=== PATIENT | male | born 1955 | race Caucasian/White ===

== ENCOUNTER → 2018-03-13 12:18 | Outpatient (CLI) | payer OTHER, SELFPAY ==
--- NOTE | 2018-03-13 13:00 | MRI_ITS ---
STUDY: MRI RIGHT MIDFOOT REASON FOR EXAM: Male, 63 years old. Pain. TECHNIQUE: Standardized fat and water weighted pulse sequences were obtained in all 3 orthogonal planes. COMPARISON: None. FINDINGS: There is mild degenerative arthrosis of the talonavicular articulation. 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 Normal calcaneocuboid articulation. Normal navicular-cuneiform articulations. There is mild degenerative arthrosis of the intercuneiform articulation. Normal first tarsometatarsal articulation. Normal Lisfranc ligament. Fusion and hardware at the second tarsometatarsal articulation. Normal cuboid fourth and cuboid fifth tarsometatarsal articulation. There is marrow edema at the base of the fourth metatarsal, series 9 image 09/19. Normal tibialis anterior tendon. Normal extensor hallucis longus tendon. Normal extensor digitorum longus tendons. Normal peroneus longus tendon and distal insertion. Normal peroneus brevis tendon and distal insertion. Normal intrinsic muscles of the mid and forefoot region. Normal extensor digitorum brevis muscle. Normal subcutis adipose space. MRI/Lower Ext/No Jt/w/o IMPRESSION: Postoperative changes are seen with fusion at the second tarsometatarsal articulation. 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 Marrow edema with bone bruise or stress injury of the fourth metatarsal. Arthritic changes. Electronically Signed: Rayshawn Diaz MD at 21:17 EST , Service support ,
--- OUTSIDE RECORDS SUMMARY | 2018-06-14 22:17 | XMS RPT_ITS ---
:1955 Author Organization OHIP Care Team Providers Name Role Phone ADRIANA, DR DALE Admitting Unavailable HILL, DR DALE Attending Unavailable HILL, DR DALE Consulting Unavailable HILL, DR DALE Admitting Unavailable HILL, DR DALE Attending Unavailable RASHEEDA, DR WILFREDO Monte Consulting Unavailable HILL, DR DALE Consulting Unavailable HILL, DR DALE Admitting Unavailable HILL, DR DALE Attending Unavailable MISC, DR GARCIA Primary Care Unavailable HILL, DR DALE Consulting Unavailable MISC, DR GARCIA Primary Care Unavailable ELEN, DR DAISY Reddy Admitting Unavailable GLENECK, DR DAISY Reddy Attending Unavailable REINECK, DR DAISY Reddy Consulting Unavailable YAROSH, EDY Consulting Unavailable HILL, DR DALE Consulting Unavailable MISC, DR GARCIA Admitting Unavailable MISC, DR GARCIA Attending Unavailable MISC, DR GARCIA Primary Care Unavailable MISC, DR GARCIA Admitting Unavailable MISC, DR GARCIA Attending Unavailable BO, DR LAUREN Mary Consulting Unavailable HILL, DR DALE Consulting Unavailable AMADA NAM, DR RAMIREZ Jasso Consulting Unavailable HILL, DR DALE Admitting Unavailable HILL, DR DALE Attending Unavailable HILL, DR DALE Consulting Unavailable LUIS, DR OLIVAS Admitting Unavailable SMITH, DR OLIVAS Attending Unavailable BO, DR LAUREN Mary Consulting Unavailable LUIS, DR OLIVAS Consulting Unavailable HILL, DR DALE Consulting Unavailable MISC, DR GARCIA Admitting Unavailable MISC, DR GARCIA Attending Unavailable WEST, DR LAUREN Mary Consulting Unavailable MISC, DR GARCIA Consulting Unavailable HILL, DR DALE Consulting Unavailable HILL, DR DALE Admitting Unavailable HILL, DR DALE Attending Unavailable HILL, DR DALE Primary Care Unavailable HILL, DR DALE Consulting Unavailable Benson Pa Attending Unavailable Thierno, Benson Referring Unavailable JOSUÉ VICTOR Primary Care Unavailable PROBLEMS PROBLEMS DATE TYPE CONDITION / CODE ATTENDING STATUS SOURCE Working PURE HYPERCHOLESTEROLEMIA ADRIANA, Active [facility] 9 Diagnosis UNSPEC / E78.00(ICD-10) [facility] Repository Admitting PURE HYPERCHOLESTEROLEMIA HILL, DR Active [facility] 9 Diagnosis UNSPEC / E78.00(ICD-10) [facility] Repository Principle PURE HYPERCHOLESTEROLEMIA ADRIANA, DR Active [facility] 9 Diagnosis UNSPEC / E78.00(ICD-10) [facility] Repository Secondary OTHER ABNORMAL GLUCOSE / ADRIANA, DR Active [facility] 9 Diagnosis R73.09(ICD-10) [facility] Repository Secondary VITAMIN D DEFICIENCY ADRIANA, Active [facility] 9 Diagnosis UNSPECIFIED / [facility] E55.9(ICD-10) Repository Unknown M84.30XD - Stress Horn, Benson Active [place] 8 fracture, unspecified Community site, subsequent Hospital encounter for fracture Repository with routine healing / M84.30XD(ICD-10) Working PAIN IN RIGHT KNEE / SMITH, DR Active [facility] 8 Diagnosis M25.561(ICD-10) [facility] Repository Admitting PAIN IN RIGHT KNEE / SMITH, DR Active [facility] 8 Diagnosis M25.561(ICD-10) [facility] Repository Principle PAIN IN RIGHT KNEE / SMITH, DR Active [facility] 8 Diagnosis M25.561(ICD-10) [facility] Repository Secondary UNI PRIM OSTEOARTHRITIS MISC, Active [facility] 8 Diagnosis RT KNEE / M17.11(ICD-10) [facility] Repository Secondary PAIN IN RIGHT KNEE / MISC, DR Active [facility] 8 Diagnosis M25.561(ICD-10) [facility] Repository Working METATARSALGIA RIGHT FOOT MISC, DR Active [facility] 8 Diagnosis / M77.41(ICD-10) [facility] Repository Admitting METATARSALGIA RIGHT FOOT MISC, DR Active [facility] 8 Diagnosis / M77.41(ICD-10) [facility] Repository Principle METATARSALGIA RIGHT FOOT MISC, DR Active [facility] 8 Diagnosis / M77.41(ICD-10) [facility] Rep[facility] Secondary PRIMARY OSTEOARTHRITIS RT MISC, DR Active [facility] 8 Diagnosis ANK FOOT / [facility] M19.071(ICD-10) Repository Working ENC GEN ADULT EXAM W/O [place], DR Active [facility] 8 Diagnosis ABNORM FIND / [facility] Z00.00(ICD-10) Repository Admitting ENC GEN ADULT EXAM W/O [place], DR Active [facility] 8 Diagnosis ABNORM FIND / [facility] Z00.00(ICD-10) Repository Principle ENC GEN ADULT EXAM W/O [place], DR Active [facility] 8 Diagnosis ABNORM FIND / [facility] Z00.00(ICD-10) Repository Working LUMBAGO WITH SCIATICA UNS MISC, DR Active [facility] 8 Diagnosis SIDE / M54.40(ICD-10) [facility] Repository Admitting LUMBAGO WITH SCIATICA UNS MISC, DR Active [facility] 8 Diagnosis SIDE / M54.40(ICD-10) [facility] Repository Principle LUMBAGO WITH SCIATICA UNS MISC, DR Active [facility] 8 Diagnosis SIDE / M54.40(ICD-10) [facility] Repository Secondary SPONDYLS W/O MISC, DR Active [facility] 8 Diagnosis MYELO-/RADICULOP LUMB / [facility] M47.816(ICD-10) Repository Working LACERATION W/O FB LT HAND REINECK, Active [facility] 8 Diagnosis INITIAL / [facility] S61.412A(ICD-10) Repository Admitting LACERATION W/O FB LT HAND REINECK, Active [facility] 8 Diagnosis INITIAL / [facility] S61.412A(ICD-10) Repository Principle LACERATION W/O FB LT HAND REINECK, Active [facility] 8 Diagnosis INITIAL / [facility] S61.412A(ICD-10) Repository Secondary OTH FB/OBJ ENTERING THRU REINECK, Active [facility] 8 Diagnosis SKIN INIT / [facility] W45.8XXA(ICD-10) Repository Secondary LOW BACK PAIN / HILL, DR Active [facility] 8 Diagnosis M54.5(ICD-10) [facility] Repository Secondary ENC SCREEN MALIG NEOPLASM HILL, DR Active [facility] 8 Diagnosis PROSTATE / Z12.5(ICD-10) [facility] Repository Working PAIN IN LEFT LEG / HILL, DR Active [facility] 8 Diagnosis M79.605(ICD-10) [facility] Repository Admitting PAIN IN LEFT LEG / HILL, DR Active [facility] 8 Diagnosis M79.605(ICD-10) [facility] Repository Principle PAIN IN LEFT LEG / HILL, DR Active [facility] 8 Diagnosis M79.605(ICD-10) [facility] Repository Secondary OTH IV DISC DEGEN LUMBAR HILL, DR Active [facility] 8 Diagnosis REGION / M51.36(ICD-10) [facility] Repository Working LOW BACK PAIN / HILL, DR Active [facility] 8 Diagnosis M54.5(ICD-10) [facility] Repository Admitting LOW BACK PAIN / HILL, DR Active [facility] 8 Diagnosis M54.5(ICD-10) [facility] Repository Principle LOW BACK PAIN / HILL, DR Active [facility] 8 Diagnosis M54.5(ICD-10) [facility] PROCEDURES PROCEDURES No Procedure Records FoundRESULTS RESULTS PROF 14(COMP METB) Collected: 04/06/2018 Status: F Source: [facility] 8:04 AM HOSPITAL REPOSITORY TYPE CODE TESTS RESULT OUT OF REFERENCE UNITS RANGE LAB 309(LOINC) 137-145 mmol/L NA 139 LAB 308(LOINC) 3.4-5.0 mmol/L K 4.4 LAB 307(LOINC) 98-107 mmol/L CL 105 LAB 310(LOINC) 22.0-30.0 mmol/L CO2 28.8 LAB 300(LOINC) 74-106 mg/dl High Alert GLUC 124 LAB 315(LOINC) 9.0-20.0 mg/dl BUN 18.0 LAB 314(LOINC) 0.66-1.25 mg/dL CREA 0.81 LAB EGFRNAA(JOE >=60 mL/min/1.73 NC) m2 EGFR-NON AF >60 [facility] LAB EGFRAA(LOIN >=60 mL/min/1.73 C) m2 EGFR-AF >60 [facility] LAB 318(LOINC) 8.4-10.2 mg/dL CA 9.0 LAB 322(LOINC) 21-72 U/L ALT 26 LAB 320(LOINC) 17-59 U/L AST 17 LAB 321(LOINC) 38-126 U/L ALP 69 LAB 301(LOINC) 6.1-8.2 g/dL TP 7.0 LAB 303(LOINC) 3.5-5.0 g/dL ALB 4.0 LAB 319(LOINC) 0.2-1.3 mg/dL TBIL 0.3 LAB 900(LOINC) BUN/CREA RATIO 22.2 LAB 901(LOINC) ANION GAP 9.6 LAB 910(LOINC) g/dL GLOBULIN 3.0 LAB 903(INC) A/G RATIO 1.3 Performed By: #### CMP #### [facility] [address] [place] [address] Angelito Alfaro GLYCOHEMOGLOBIN A1C Collected: 04/06/2018 Status: F Source: [facility] 8:04 AM HOSPITAL REPOSITORY TYPE CODE TESTS RESULT OUT OF REFERENCE UNITS RANGE LAB 927(LOINC) <=6.0 % Glycohemoglobin A1c 6.0 LAB E_AVG_GLUC mg/dl (LOINC) EST AVG GLUCOSE 126 Performed By: #### A1C #### [facility] [address] [place] [address] Angelito Alfaro VITAMIN D 25 [place] Collected: 04/06/2018 Status: F Source: [facility] 8:04 HOSPITAL REPOSITORY TYPE CODE TESTS RESULT OUT OF REFERENCE UNITS RANGE LAB 074(LOINC) ng/mL VIT D 25-OH 20.8 LAB VITD_H(LOIN C) VIT D RANGES SEE BELOW Result Comment: <20 ng/mL Vit D deficient 20 - <30 ng/mL Vit D insufficient 30 - 100 ng/mL Vit D sufficient >100 ng/mL Potential Toxicity LAB VITH(LOINC) PLEASE VITDH NOTE: NORMAL RANGE CHANGE 11-29-2012, TESTING PERFORMED AT [facility]. Performed By: #### VITAD #### [facility] [address] [place] [address] Angelito Alfaro LOWER EXT/NO JT/W/O Observed: 03/13/2018 Status: F Source: [place] 12:31 PM [facility] REPOSITORY [facility] Imaging Services [address] [place] [address] Lower Ext/No Jt/w/o MR#: [id number] Acct: [id number] Name: KIM JHA Rep #: [id number] : 1955 M 63 From: Rayshawn Diaz MD PCP: OUT OF TOWN DOCTOR Status: REG CLI Study: Lower Ext/No Jt/w/o Date of Exam: 03/13/18 Exam# [id number] Ordering Dr: Benson Pa ADDENDUM by Pedrito Carias MD on 03/14/18 at 1438 ADDENDUM ADDENDUM: Study is compared with previous plain film and outside bone scan from 2016. Little significant change noted from the previous studies. The bone scan suggests fracture in the fourth metatarsal which is also noted on the recent MRI. The postoperative changes described on the MRI are also present on the plain film. Electronically Signed: William Carias MD at 14:38 EST , Service support , 03/14/18 1438 Date cc: Benson Pa DPM; OUT OF TOWN DOCTOR * Signed ADDENDUM by Pedrito Carias MD on 03/14/18 at 1438 ADDENDUM ADDENDUM: Study is compared with previous plain film and outside bone scan from 2016. Little significant change noted from the previous studies. The bone scan suggests fracture in the fourth metatarsal which is also noted on the recent MRI. The postoperative changes described on the MRI are also present on the plain film. Electronically Signed: William Carias MD at 14:38 EST , Service support , 03/14/18 1438 Date cc: Benson Pa DPM; OUT OF TOWN DOCTOR * Signed ADDENDUM by Pedrito Carias MD on 03/14/18 at 1438 MRI/Lower Ext/No Jt/w/o 03/14/18 1445 Date cc: Benson Pa DPM; OUT OF TOWN DOCTOR * Signed ADDENDUM by Pedrito Carias MD on 03/14/18 at 1438 MRI/Lower Ext/No Jt/w/o 03/14/18 1445 Date cc: Benson Pa DPM; OUT OF TOWN DOCTOR * Signed STUDY: MRI RIGHT MIDFOOT REASON FOR EXAM: Male, 63 years old. Pain. TECHNIQUE: Standardized fat and water weighted pulse sequences were obtained in all 3 orthogonal planes. COMPARISON: None. FINDINGS: There is mild degenerative arthrosis of the talonavicular articulation. 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 Normal calcaneocuboid articulation. Normal navicular-cuneiform articulations. There is mild degenerative arthrosis of the intercuneiform articulation. Normal first tarsometatarsal articulation. Normal Lisfranc ligament. Fusion and hardware at the second tarsometatarsal articulation. Normal cuboid fourth and cuboid fifth tarsometatarsal articulation. There is marrow edema at the base of the fourth metatarsal, series 9 image 09/19. Normal tibialis anterior tendon. Normal extensor hallucis longus tendon. Normal extensor digitorum longus tendons. Normal peroneus longus tendon and distal insertion. Normal peroneus brevis tendon and distal insertion. Normal intrinsic muscles of the mid and forefoot region. Normal extensor digitorum brevis muscle. Normal subcutis adipose space. MRI/Lower Ext/No Jt/w/o IMPRESSION: Postoperative changes are seen with fusion at the second tarsometatarsal articulation. 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 Marrow edema with bone bruise or stress injury of the fourth metatarsal. Arthritic changes. Electronically Signed: Rayshawn Diaz MD at 21:17 EST , Service support , CC: Benson Pa DPM; OUT OF TOWN DOCTOR Cam Maker: Signed XR KNEE RT 1-2 V Observed: 02/08/2018 Status: F Source: [facility] 9:50 AM HOSPITAL REPOSITORY [address] [place] [phone] Patient: KIM JHA Exam Date: 02/08/2018 : 1955 Gender:M Ordering : MR DEISY SMITH . Admission #: [id number] Family : Order #: [id number] CLICK HERE TO VIEW EXAM RADIOLOGY REPORT PROCEDURE: RADIOGRAPH KNEE RIGHT 1-2 VIEWS COMPARISON: None. INDICATIONS: Chronic right knee pain without injury FINDINGS: BONES: No acute fracture or dislocation. Moderate to severe tricompartmental osteoarthropathy of the right knee most significant in the medial compartment where severe joint space narrowing is observed. SOFT TISSUES: No visible soft tissue swelling or radiopaque foreign body. EFFUSION: Small suprapatellar joint effusion OTHER: Negative. CONCLUSION: 1. Moderate to severe osteoarthritis Dictated by: Lauren Trinidad M.D. on 02/08/2018 at 10:25 Approved by: Lauren Trinidad M.D. on 02/08/2018 at 10:26 XR FOOT RT MIN 3 Observed: 02/08/2018 Status: F Source: [facility] 9:40 AM HOSPITAL REPOSITORY [address] [place] [phone] Patient: KIM JHA Exam Date: 02/08/2018 : 1955 Gender:M Ordering : MRS. BENSON PA Admission #: [id number] Family : Order #: [id number] CLICK HERE TO VIEW EXAM RADIOLOGY REPORT PROCEDURE: RADIOGRAPH FOOT RIGHT MIN 3 VIEWS COMPARISON: XR KNEE RT 1-2 V, 02/08/2018. XR ANKLE RT 2V, 03/07/2016. XR FOOT RT MIN 3 VIEWS, 09/05/2015. CT FOOT RT WO CON, 02/17/2016. XR FOOT RT MIN 3 VIEWS, 03/07/2016. INDICATIONS: Chronic metatarsalgia of right foot FINDINGS: BONES: No acute fracture or dislocation. Moderate degenerative osteoarthropathy of the hindfoot and midfoot, with significant progression of osteoarthritis at the tibiotalar joint. Stable fusion plate along the dorsal navicular and dorsal 2nd tarsometatarsal articulation. Moderate enthesopathic spurring of the calcaneus. SOFT TISSUES: No visible soft tissue swelling or radiopaque foreign body. OTHER: Negative. CONCLUSION: 1. Interval progression of now moderate osteoarthritis, most significant at the tibiotalar joint Dictated by: Lauren Trinidad M.D. on 02/08/2018 at 10:26 Approved by: Lauren Trinidad M.D. on 02/08/2018 at 10:41 GLYCOHEMOGLOBIN A1C Collected: 12/07/2017 Status: F Source: [facility] 7:30 AM HOSPITAL REPOSITORY TYPE CODE TESTS RESULT OUT OF REFERENCE UNITS RANGE LAB 927(LOINC) <=6.0 % Glycohemoglobin A1c 6.0 LAB E_AVG_GLUC mg/dl (LOINC) EST AVG GLUCOSE 126 Performed By: #### A1C #### [facility] [address] [place] [address] Angelito Alfaro XR L-SPINE W/OBLS AND Observed: 12/04/2017 Status: F Source: [facility] FLEX-EXT 5:39 PM HOSPITAL REPOSITORY [address] [place] [phone] Patient: KIM JHA Exam Date: 12/04/2017 : 1955 Gender:M Ordering : DR RAMIREZ YBARRA JR Admission #: [id number] Family : Order #: [id number] CLICK HERE TO VIEW EXAM RADIOLOGY REPORT PROCEDURE: RADIOGRAPH L-SPINE WITH FLEX/EXT COMPARISON: None. INDICATIONS: Chronic lumbar back pain radiating down left leg causing a burning sensation FINDINGS: BONES: Moderate widespread spondylosis and facet osteoarthritis. No visible acute bony abnormality. 6 mm anterolisthesis of L5 in relation S1 in neutral position DISC SPACES: Mild widespread disc height narrowing. PARASPINOUS: Negative. No paraspinous abnormality is seen. OTHER: Doses. No transient spondylolisthesis with flexion or extension CONCLUSION: 1. Moderate degenerative spondylosis and facet osteoarthritis 2. 6 mm anterolisthesis of L5 on S1 with no transient instability Dictated by: Lauren Trinidad M.D. on 12/04/2017 at 19:19 Approved by: Lauren Trinidad M.D. on 12/04/2017 at 19:21 PROF 14(COMP METB) Collected: 10/03/2017 Status: F Source: [facility] 7:07 AM HOSPITAL REPOSITORY TYPE CODE TESTS RESULT OUT OF REFERENCE UNITS RANGE LAB 309(LOINC) 137-145 mmol/L NA 140 LAB 308(LOINC) 3.4-5.0 mmol/L K 4.8 LAB 307(LOINC) 98-107 mmol/L CL 105 LAB 310(LOINC) 22.0-30.0 mmol/L CO2 27.0 LAB 300(LOINC) 74-106 mg/dl High Alert GLUC 125 LAB 315(LOINC) 9.0-20.0 mg/dl High Alert BUN 25.0 LAB 314(LOINC) 0.66-1.25 mg/dL CREA 0.70 LAB EGFRNAA(JOE >=60 mL/min/1.73 NC) m2 EGFR-NON AF >60 [facility] LAB EGFRAA(LOIN >=60 mL/min/1.73 C) m2 EGFR-AF >60 [facility] LAB 318(LOINC) 8.4-10.2 mg/dL CA 8.8 LAB 322(LOINC) 21-72 U/L ALT 37 LAB 320(LOINC) 17-59 U/L AST 29 LAB 321(LOINC) 38-126 U/L ALP 60 LAB 301(LOINC) 6.1-8.2 g/dL TP 6.6 LAB 303(LOINC) 3.5-5.0 g/dL ALB 4.3 LAB 319(LOINC) 0.2-1.3 mg/dL TBIL 0.7 LAB 900(LOINC) BUN/CREA RATIO 35.8 LAB 901(LOINC) ANION GAP 12.5 LAB 910(LOINC) g/dL GLOBULIN 2.3 LAB 903(LOINC) A/G RATIO 1.9 Performed By: #### CMP, LIPID, PSAD #### [facility] [address] [place], [place] [id number] Angelito Alfaro LIPID PROFILE Collected: 10/03/2017 Status: F Source: [facility] 7:07 HOSPITAL REPOSITORY TYPE CODE TESTS RESULT OUT OF REFERENCE UNITS RANGE LAB 305(LOINC) <=200 mg/dL 173 CHOL LAB 304(LOINC) <=150 mg/dL 139 TRIG LAB 356(LOINC) mg/dL 46 HDL LAB HDLH(LOINC ) > or = 60 mg/dl - HDL LOW CARDIOVASCULAR NORMAL RISK <40 mg/dl - HIGH CARDIOVASCULAR RISK LAB 916(LOINC) mg/dL 99.0 LDL CALC LAB LDLCH(LOIN C) SEE BELOW LDL CALC NORMAL Result Comment: <100 mg/dl OPTIMAL 100 - 129 mg/dl NEAR OR ABOVE OPTIMAL 130 - 159 mg/dl BORDERLINE HIGH 160 - 189 mg/dl HIGH >190 mg/dl VERY HIGH LAB 917(LOINC) CHOL/HDL RATIO 4.0 LAB CH_HDL_H(LOINC) CHOL-HDL RATIO NORM SEE BELOW Result Comment: 3.3 - 4.4 LOW RISK 4.4 - 7.1 AVERAGE RISK 7.1 - 11.0 MODERATE RISK >11.0 HIGH RISK LAB 912(LOINC) mg/dL VLDL CALC 28.0 Performed By: #### CMP, LIPID, PSAD #### [facility] [address] [place] [address] Angelito Alfaro PSA Collected: 10/03/2017 Status: F Source: [facility] 7:07 AM HOSPITAL REPOSITORY TYPE CODE TESTS RESULT OUT OF RANGE REFERENCE UNITS LAB 036(LOINC) <=4.00 ng/mL PSA 1.10 Performed By: #### CMP, LIPID, PSAD #### [facility] [address] [place], [place] [address] Angelito Alfaro VITAMIN D 25 [place] Collected: 10/03/2017 Status: F Source: [facility] 7:07 AM HOSPITAL REPOSITORY TYPE CODE TESTS RESULT OUT OF REFERENCE UNITS RANGE LAB 074(LOINC) ng/mL VIT D 25-OH <20.0 LAB VITD_H(LOIN C) VIT D RANGES SEE BELOW Result Comment: <20 ng/mL Vit D deficient 20 - <30 ng/mL Vit D insufficient 30 - 100 ng/mL Vit D sufficient >100 ng/mL Potential Toxicity LAB VITH(LOINC) PLEASE VITDH NOTE: NORMAL RANGE CHANGE 11-29-2012, TESTING PERFORMED AT [facility]. Performed By: #### VITAD #### [facility] [address] [place], [place] [phone] Angelito Alfaro MRI L-SPINE WO CON Observed: 08/24/2017 Status: F Source: [facility] 8:59 AM HOSPITAL REPOSITORY [address] [place] [phone] Patient: KIM JHA Exam Date: 08/24/2017 : 1955 Gender:M Ordering : DR CHITO WRIGHT Admission #: [id number] Family : Order #: [id number] CLICK HERE TO VIEW EXAM RADIOLOGY REPORT PROCEDURE: MRI L-SPINE WITHOUT CONTRAST COMPARISON: None. INDICATIONS: Chronic lumbar spine pain, no injury TECHNIQUE: A variety of imaging planes and parameters were utilized for visualization of suspected pathology. FINDINGS: For the purposes of numbering, sagittal T2 image # 10 extends from the T11 vertebral body superiorly to the S4 level inferiorly. PARASPINAL AREA: Normal with no visible mass. BONES: No fracture, pars defect, or osseous lesion. CORD/CAUDA EQUINA: Normal caliber, contour, and signal intensity. LUMBAR DISC LEVELS: 12-L1: No significant disc/facet abnormality, spinal stenosis, or foraminal stenosis. L1-L2: Mild central canal and foraminal narrowing secondary to mild diffuse disc bulging. Mild disc height reduction. L2-L3: Moderate foraminal narrowing bilaterally. Mild central canal narrowing. Mild-moderate diffuse disc bulging. Mild disc height reduction. L3-L4: Moderate-marked left and moderate right foramen narrowing. Mild-moderate central canal narrowing. Mild facet arthropathy. L4-L5: Marked left, moderate right foraminal narrowing. No significant central canal narrowing. Mild diffuse disc bulging and mild facet spondylosis. No significant disc height reduction. L5-S1: Marked left, moderate right foraminal narrowing. 3 mm anterior listhesis of L5 on S1 with posterior pseudo disc bulging and annular tear along the posterior disk margin. Mild disc height reduction. Bilateral pars interarticularis defects and moderate facet spondylosis CONCLUSION: 1. Multilevel moderate-marked left foraminal narrowing and moderate right foraminal narrowing secondary to degenerative disc disease and facet arthropathy. 2. L5-S1 grade 1 anterior listhesis secondary to bilateral pars interarticularis defects. Dictated by: Wilfredo Oliva M.D. on 08/24/2017 at 10:02 Approved by: Wilfredo Oliva M.D. on 08/24/2017 at 10:14 XR FOREIGN BODY EYE Observed: 08/24/2017 Status: F Source: [facility] 8:32 AM HOSPITAL REPOSITORY [address] [place] [phone] Patient: KIM JHA Exam Date: 08/24/2017 : 1955 Gender:M Ordering : DR CHITO WRIGHT Admission #: [id number] Family : Order #: [id number] CLICK HERE TO VIEW EXAM RADIOLOGY REPORT PROCEDURE: RADIOGRAPH FOREIGN BODY EYE COMPARISON: None. INDICATIONS: Foreign body in eye FINDINGS: ORBITS: Negative for a metallic foreign body. OTHER: Negative. CONCLUSION: No metallic foreign body within the orbits. Dictated by: Wilfredo Oliva M.D. on 08/24/2017 at 08:41 Approved by: Wilfredo Oliva M.D. on 08/24/2017 at 08:56 ALLERGIES ALLERGIES DATE TYPE / CODE NAME / CODE REACTION SEVERITY SOURCE 09/05/2015 Drug No Known Drug Unknown [facility] Allergy/4160 Allergies/900 Hospital 86678(SNOMED 590(RXNORM) Repository CT) ENCOUNTERS ENCOUNTERS ADMIT/DISCHARGE ACCOUNT ADMITTING ENCOUNTER LOCATION SOURCE NUMBER CLASS 04/06/2018/04/06/[id number] ADRIANA Ambulatory M6Hnqjtnzc:[place] [facility] 19 CHITO IN Hospital Repository 03/13/2018 [id number] Ambulatory [facility] ing:MRI Repository 02/08/2018/02/09/[id number] LUIS Ambulatory B1Ygqcmuej:[facility] DEISY IN Hospital Repository 02/08/2018/02/09/[id number] MALIA Ambulatory I5Rgewzkka:MA [facility] 18 DOCTOR IN Hospital Repository 12/07/2017/12/08/[id number] ADRIANA Ambulatory W4Aefxoemk:[facility]IT[facility] IN Hospital Repository 12/04/2017/12/05/[id number] MALIA Ambulatory Z2Yuejfwfe:MA [facility] 18 DOCTOR IN Hospital Repository 12/01/[id number] MALIA Ambulatory U0Yzxwywls:MA [facility] DOCTOR IN Hospital Repository 11/06/2017/11/07/[id number] ELEN Ambulatory A7Rhrvhkkx:ED [facility] 18 DAISY Reddy ISRoom: Hospital PO99Tqw: Repository ER06-10/03/2017/10/04/[id number] ADRIANA Ambulatory R5Ngrmsuyn:MA [facility] 18 CHITO IN Hospital Repository 08/24/2017/08/25/[id number] ADRIANA Ambulatory A4Jxdycbqv:[facility] IN Hospital Repository 05/05/2017/06/30/[id number] ADRIANA Ambulatory C2Vwwirojz:MA [facility] 18 CHITO IN Hospital Repository PAYERS PAYERS ENCOUNTER GUARANTOR PAYER SUBSCRIBER SOURCE 04/06/2018 KIM Gallardo Primary Insurance:[facility] [id number] Number: [id number] Repository [facility] [id number] [address] [place] [address] Date:1959-03-27 [facility] [place] [address]Aft: [id number] [place] [id number], [place] () [id number]: 03/13/2018 KIM Gallardo Primary ARY Aly Jin [id number] Insurance:MEDICAL KISTLERDOB: [id number], Number: Repository [place] [id number]: [id number] Date:1150-27-53AD [address] ([address]) [address], [place] [address]TF: 03/13/2018 Secondary NOT GIVENUNK [place] Insurance:SELF PAY [facility] Hospital Effective Repository Date:2018-03-05 02/08/2018 KIM Gallardo Primary Insurance:[facility] ARY [facility]: [facility] Number: [id number] [facility] [id number] [address] [place] [address] Date:1959-03-27 [place], [place] [address]Bgy: [id number] [address] 15855NLAXDFBMOREHEAD, [place] () [id number]: 02/08/2018 KIM Gallardo Primary Insurance:[facility] ARY [facility]: [facility]B: [facility] Number: [id number] Repository [facility] [id number] [address] [place] [address] Date:1959-03-27 [place], [place] [address]Aeh: [id number] [address] 72346CFQNLYCMOREHEAD, [place] () [id number]: 12/07/2017 KIM Gallardo Primary Insurance:[facility] ARY Lu [facility]: [facility] Number: [id number] Repository [facility] [id number] 5 [facility] Date:1959-03-27 - [facility], , [place] [address]Dra: [id number] [id number] [place] [address] (HP) [id number]: 12/04/2017 KIM Gallardo Primary Insurance:[facility] ARY Aly [facility]: [facility]: [facility] Number: [id number] Repository [place] [id number] 5 [facility] Date:1959-03-27 [place] , [place] [address]Erc: [id number] [id number] [place] [address] (HP) [id number]: 12/01/2017 KIM Gallardo Primary Insurance:[facility] KIM Gallardo [facility]: [facility]: [facility] Number: [id number] Repository [place] [id number] 5 [facility] [place] Date:1959-03-27 [place], , [place] [address]Nij: [id number] [id number] [place] [address] (HP) [id number]: 11/06/2017 KIM Gallardo Primary Insurance:[facility] ARY Lu [facility]: [facility]: [facility] Number: [id number] Repository [place] [id number] 5 [facility] [place] Date:1959-03-27 [facility] [place], , [place] [address]Iau: [id number] [id number] [place] [address] (HP) [id number]: 10/03/2017 KIM Gallardo Primary Insurance:[facility] ARY Lu [facility]: [facility]: [facility] Number: [id number] Repository [place] [id number] [address] Date:1959-03-27 [place], , [place] [address]Hhl: [id number] [address]HLYXSAI, [place] () [id number]: 08/24/2017 KIM Gallardo Primary Insurance:[facility] ARY Lu [facility]: [facility]: [facility] Number: [id number] Repository [place] [id number] [address] Date:1959-03-27 [place], , [place] [address]Zgk: [id number] [address]AZAMUUE, [place] () [id number]: 05/05/2017 KIM Gallardo Primary Insurance:[facility] KIM Gallardo [facility]: [facility]: [facility] Number: [id number] Repository [place] [id number] [address] Date:1959-03-27 [place], , [place] [address]Tqi: [id number] [address]BTOLDZZ, [place] () [id number]:
== END ==
PROVIDERS: Referring Provider Podiatrist; Visit Provider Podiatrist
DX: M84.30XD Stress fracture, unspecified site, subsequent encounter for fracture with routine healing (principal)
CPT/HCPCS: 73718